=== PATIENT | male | born 1965 | race Caucasian/White ===

== ENCOUNTER → 2019-07-07 | Day surgery (SDC) | payer OTHER ==
[2019-07-03 14:41] LABS: BASOPHILS % 0.6 % (0.0-1.0); EOSINOPHILS # (AUTO) 0.1 (0.0-0.4); EOSINOPHILS % 1.1 % (0.0-6.0); HEMATOCRIT 45.5 % (38.2-49.6); HEMOGLOBIN 16.3 g/dL (14.0-18.0); LYMPHOCYTES # (AUTO) 2.4 (1.0-3.2); MEAN CORPUSCULAR HEMOGLOBIN 32.5 pg (28-32); MEAN CORPUSCULAR HGB CONC 35.8 g/dL (31-35); MEAN CORPUSCULAR VOLUME 90.6 fL (81-99); MONOCYTES # (AUTO) 0.8 (0.2-0.8); MONOCYTES % 10.4 % (4.4-11.3); NEUTROPHILS % 54.8 % (38.7-80.0); PLATELET COUNT 246 x10e3/uL (140-360); RED BLOOD COUNT 5.02 x10e6/uL (4.3-5.7); RED CELL DISTRIBUTION WIDTH 13.1 % (11.7-14.4)
[2019-07-03 15:03] LABS: ANION GAP 12.3 mmol/L (8-16); BLOOD UREA NITROGEN 15 mg/dL (7-26); BUN/CREATININE RATIO 13 (6-25); CALCIUM 9.6 mg/dL (8.4-10.2); CARBON DIOXIDE 29 mmol/L (22-29); CHLORIDE 101 mmol/L (98-107); CREATININE, SERUM 1.17 mg/dL (0.72-1.25); EST GLOMERULAR FILTRATION RATE > 60 ML/MIN (60-); GLUCOSE 96 mg/dL (74-118); POTASSIUM 4.3 mmol/L (3.5-5.1); SODIUM 138 mmol/L (136-145)
[~2019-07-07] MED LIST: BUPIVACAINE 0.25% 30ML SDV INJ ONE; DEXAMETHASONE SOD PHOS INJ 4 MG/ML VIAL ONE; FENTANYL CITRATE/PF 100MCG/2 ML INJ ONE; KETOROLAC TROMETHAMINE 30 MG/ML VIAL ONE; LIDOCAINE 1% W/EPINEPHRINE 20 ML VIAL ONE; LIDOCAINE HCL 2% LOCAL INJ 5 ML SDV VIAL INJ ONE; MIDAZOLAM HCL 2 MG/2 ML VIAL ONE; OMEPRAZOLE40 MG PO; ONDANSETRON HCL INJ 2MG/ML 2ML 2 MG/ML VIAL ONE; PROPOFOL IV EMULSION 10 MG/ML 20 ML VIAL ONE; SEVOFLURANE INHAL SOLN 250 ML PEN BTL ONE
--- NOTE | 2019-07-07 09:45 | NUR ---
SPIRITUAL CARE - Pre-Surgery Assessment: Pt in bed. Pt's at bedside. Pt reported supportive attention from family and friends. Intervention: I provided pastoral presence, hospitality, and sympathetic listening. I acquainted pt with availability of dental cream maker while hospitalized. Outcome: Pt expressed appreciation for visit. No need for follow up indicated at this time. MICHELET Fernandeslain Spiritual Care Department O: [phone]
[2019-07-07 13:35] VITALS: BP 117/77
--- NOTE | 2019-07-07 20:00 | Operative Report ---
DATE OF PROCEDURE: 07/07/2019 SURGEON: Jovanny Saunders MD PREOPERATIVE DIAGNOSIS: Left inguinal hernia. POSTOPERATIVE DIAGNOSIS: Sliding left inguinal hernia. OPERATION PERFORMED: Repair of left sliding inguinal hernia with extended Prolene hernia system. BOX COVERER HAND: SHANIKA Pedroza. ANESTHESIA: General. COMPLICATIONS: None. ESTIMATED BLOOD LOSS: Minimal. DESCRIPTION OF PROCEDURE: With the patient lying in bed in the supine position under good general anesthesia, the abdomen was prepped with Betadine solution and draped in the usual manner. A left inguinal incision was made and was carried down through the subcutaneous tissue down to the external oblique aponeurosis. External oblique was then opened along the length of its fibers and the external inguinal ring was opened. The cord was then mobilized and retracted. Exploration of the cord at this point revealed a large indirect hernia sac which extended all the way down to the top of the scrotum. The hernia sac was then from the cord structures and the hernia sac was then opened and the left colon was found to be inside the hernia sac being part of the lateral wall of the hernia sac. The colon was then from the hernia sac and reduced back to the intraabdominal cavity. The excess of the hernia sac was then closed with a pursestring suture of 2-0 silk and a 2-0 silk tie and resected. The preperitoneal space was then entered and a pocket was created without any difficulty. An extended Prolene hernia system was then placed in the preperitoneal space and the underlay patch was deployed without any problems. The overlay patch was then placed over the floor and split inferolaterally to allow for passage of the cord. The mesh was then sutured to the conjoined tendon and the inguinal ligament using interrupted sutures of 2-0 Vicryl. All layers on the way out were then infiltrated with a solution of 0.25% Marcaine and 1% lidocaine mixed in equal parts. The external oblique aponeurosis was closed with a running suture of 2-0 Vicryl. The subcutaneous tissue was approximated with 3-0 plain and the skin was closed with clips. A dressing was applied. The sponge, lap, and needle count was correct. The patient tolerated the procedure well and returned to the recovery room in stable condition. MD CHASTITY Cutler/HELADIO /[id number]
== END | disposition home or self-care (01) ==
LOC: OR 07:58
PROVIDERS: ATTEND Surgery
DX: K40.90 Unilateral inguinal hernia, without obstruction or gangrene, not specified as recurrent (principal); K21.9 Gastro-esophageal reflux disease without esophagitis; K58.9 Irritable bowel syndrome, unspecified; Z01.810 Encounter for preprocedural cardiovascular examination; Z01.812 Encounter for preprocedural laboratory examination
CPT/HCPCS: 36415; 49525; 80048; 85025; 93005; C1781; J1100; J1885; J2001; J2250; J2405; J2704; J3010